=== PATIENT | male | born 1980 ===

== ENCOUNTER 2023-09-03 11:14 | Day surgery (SDC) | payer MEDICAID, SELFPAY ==
[2023-09-03] VITALS (7 sets, daily range): BP systolic 105–132; BP diastolic 68–84; PULSE 74–103; RESP 16–20; TEMP 36.5–37.1; O2SAT 98–100; BMI 24.4
--- NOTE | 2023-09-03 11:48 | W.PM.OPSUD ---
Surgery/Procedure H&P Update DATE OF PROCEDURE: September 03, 2023 DATE H&P PERFORMED: 08/30/23 H&P UPDATE INFORMATION: I have reviewed H&P completed within last 30 days, I have examined patient prior to procedure and No changes to prior documentation PLANNED PROCEDURE: Operation Date: 09/03/23 12:50 [place] p [address] exc of sub. mass of back R22.2(Not Applicable) - Jun Carpenter, DO
[2023-09-03] MEDS: sodium chloride 0.9% 1,000 ML 30 ML IV (12:14)
[2023-09-03] MEDS: vancomycin 1,000 MG in sodium chloride 0.9% 250 ML 250 MG IV (12:28)
--- NOTE | 2023-09-03 12:37 | P.ANESASSM_ITS ---
Pre-Anesthetic Assessment Height/Weight: Height 1.75 m Weight 75 kg Temp Pulse Resp BP Pulse Ox O2 Del Method 97.7 F 80 16 132/84 98 Room Air 09/03/23 11:52 09/03/23 11:52 09/03/23 11:52 09/03/23 11:52 09/03/23 11:52 09/03/23 11:56 Operation Date: 09/03/23 12:50 Proposed Procedures p [id number] exc of sub. mass of back R22.2(Not Applicable) - Jun Carpenter DO Familial anesthetic complications: None Was Beta Leander taken within 24 hours: N/A Was Clonidine taken within 24 hours: N/A Last intake: Intake Last Liquid Date 09/02/23 Last Liquid Time 23:30 Last Solid Date 09/02/23 Last Solid Time 20:00 Social Tobacco (vapes) and No alcohol Exam alert, oriented x 3, clear to auscultation bilaterally and regular rate & rhythm Airway Mallampati: Class I Dentition: full CV/HEM Hypertension HIV (+) Metabolic Hyperlipidemia Anesthetic Plan ASA status: 3 Anesthesia: General Risk of > 500 ml blood loss (7ml/kg in children): No Medications/Allergies Home Medications Medication Instructions Recorded Confirmed Last Taken Type bictegravir 50 mg-emtricitabine 1 tab PO DAILY 08/30/23 09/02/23 09/02/23 History 200 mg-tenofovir alafenam 25 mg tablet (Biktarvy) losartan 25 mg tablet (Cozaar) 25 mg PO DAILY 08/30/23 09/02/23 09/02/23 History rosuvastatin 20 mg tablet (Crestor) 20 mg PO DAILY 08/30/23 09/02/23 09/02/23 History Allergies Allergy/AdvReac Type Severity Reaction Status Date / Time Penicillins Allergy Unknown momma said Verified 09/02/23 12:26 i was allergic to it Current Medications Generic Name Dose Route Start Last Admin Trade Name Freq PRN Reason Stop Dose Admin Sodium Chloride 1,000 mls @ 30 mls/hr 09/03/23 11:45 09/03/23 12:14 Sodium Chloride 0.9% IV 09/04/23 11:44 30 mls/hr .Q24H CONSTANTINE Administration PFSH Anesthesia Surgical History (Updated 08/30/23 @ 09:17 by Jun Carpenter DO) Hx of appendectomy Hx of colonoscopy age 30 History of esophagogastroduodenoscopy (EGD) age 30 Family History Mother Diabetes Cancer ovarian Family/Other Colon cancer Father Cancer stomach Social History Smoking and tobacco/nicotine status: current every day tobacco/nicotine user e- cigarettes E-Cigarette Details: with nicotine Alcohol intake: former Data Anesthesia Cardiac Studies: No Data to Display
[2023-09-03] MEDS: neomycin-poly-bacitracin oint 28 gm 1 APPLIC TOPICAL (13:50)
[2023-09-03] MEDS: lidocaine-epi 2% PF 1:200,000 20 mL SDV XX (13:52)
--- NOTE | 2023-09-03 14:18 | PM.OP ---
Operative Report Date of procedure: September 03, 2023 Pre-op diagnosis: Subcutaneous mass of back Post-op diagnosis: same Procedure done: Excision of subcutaneous mass of back Implants: None Specimens removed/disposition: Cyst with contents Surgeon: Jun Carpenter DO Anesthesia: MAC and Local Estimated blood loss (mL): 5 Complications: None apparent Brief History: this very pleasant 43-year-old gentleman with a greater than 2-year history of enlarging subcutaneous mass of his back. He desired excision. The risks and benefits were explained and documented. Procedure: The skin over the subcutaneous mass on the left upper side of his back was inspected prepped and draped in the usual sterile fashion. 2% lidocaine with epinephrine was used to anesthetize the area around the lesion which again measured 4 centimeters in greatest diameter. A 15 blade scalpel then used to make an incision over the mass. Incision was carried down to subcutaneous tissue and an epidermal inclusion cyst was encountered. The contents were expelled and the cyst was removed by itself with minimal damage to surrounding tissues. Hemostasis was noted. Skin was closed with 3-0 nylon in a simple running fashion. Sterile bandage was applied. Patient tolerated the procedure well.
--- NOTE | 2023-09-03 15:05 | ANE.PACU2 ---
Inpatient post-anesthesia follow up: Airway intact: Yes Vital signs: Temperature 98.3 F Pulse Rate 74 Respiratory Rate 16 Blood Pressure 112/72 Pulse Oximetry 99 Oxygen Delivery Me thod Room Air Oxygen Flow Rate Fraction of Inspir ed Oxygen Hydration adequate: Yes Nausea and vomiting: No Pain level: 1 Mental status: Baseline
== END 2023-09-03 15:05 | disposition home or self-care (01) ==
PROVIDERS: PCP Family Medicine; Visit Provider Surgery
PROC: (CPT 11404; principal; 2023-09-03 12:40)
DX: L72.0 Epidermal cyst (principal); I10 Essential (primary) hypertension; E78.5 Hyperlipidemia, unspecified; F17.200 Nicotine dependence, unspecified, uncomplicated
CPT/HCPCS: 11404; 88307; J2250; J2704; J3010; J3370; J3490; J7030; J7050